=== PATIENT | male | born 1960 | race Caucasian/White ===

== ENCOUNTER 2019-06-15 13:22 | Emergency (ER) | payer BC ==
--- NOTE | 2019-06-15 13:38 | EDM.PDOC ---
ED HPI GENERAL MEDICAL PROBLEM - General Chief Complaint: Lower Extremity Injury/Pain Stated Complaint: FELL OF HORSE Time Seen by Provider: 06/15/19 13:38 Source of Information: Reports: Patient History Limitations: Reports: No Limitations - History of Present Illness INITIAL COMMENTS - FREE TEXT/NARRATIVE: 58-year-old male presents the ED with an acute injury to his right lower extremity. 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 His foot was in the stirrup. A cow came between them running and gave his right foot a heck of a twist injury while he was still in the stirrup . He has some pain in his knee but is unable to weight-bear on the right foot. He was given oxycodone by coworkers. States his main a little loopy in the head. He did not follow up the horse and did not suffer any other injuries. No previous fractures to the right lower extremity Onset: Today Onset Date: 06/15/19 Onset Time: 12:00 Duration: Hour(s): Location: Reports: Lower Extremity, Right Quality: Reports: Ache, Throbbing (Acute injury to the right lower extremity particularly the lateral aspect of the ankle.) Severity: Moderate Improves with: Reports: None (610), Rest Worsens with: Reports: Movement Context: Reports: Trauma. Denies: Activity, Exercise, Lifting, Sick Contact, Other Associated Symptoms: Reports: No Other Symptoms Treatments CAKE WRINGER: Reports: Other (see below) (Percocet tablet 01/08/25 presumably) Right Ankle Pain Score (Numeric/FACES): 7 - Related Data Allergies Allergy/AdvReac Type Severity Reaction Status Date / Time No Known Allergies Allergy Verified 06/15/19 13:34 Home Meds: Home Meds Omeprazole [priLOSEC OTC] 20 mg PO DAILY 05/18/14 [History] oxyCODONE HCl/Acetaminophen [Percocet 5-325 mg Tablet] 1 - 2 each PO Q4H PRN # 20 tablet 06/15/19 [Rx] Past Medical History Gastrointestinal History: Reports: GERD Social & Family History - Tobacco Use Smoking Status *Q: Current Every Day Smoker Years of Tobacco use: 42 Packs/Tins Daily: 1 - Caffeine Use Caffeine Use: Reports: Coffee - Alcohol Use Days Per Week of Alcohol Use: 3 Number of Drinks Per Day: 4 Total Drinks Per Week: 12 - Recreational Drug Use Recreational Drug Use: No - Living Situation & Occupation Living situation: Reports: Occupation: Employed (Self-employed rancher) Review of Systems - Review of Systems Review Of Systems: See Below Constitutional: Reports: No Symptoms Eyes: Reports: No Symptoms Ears: Reports: No Symptoms Nose: Reports: No Symptoms Mouth/Throat: Reports: No Symptoms Respiratory: Reports: No Symptoms Cardiovascular: Reports: No Symptoms GI/Abdominal: Reports: Other Genitourinary: Reports: Other (Mild urinary frequency. Nocturia 1 nightly.) Musculoskeletal: Reports: Leg Pain (Right leg pain right foot pain) Skin: Reports: No Symptoms Neurological: Reports: No Symptoms Psychiatric: Reports: No Symptoms ED EXAM, GENERAL - Physical Exam Exam: See Below Exam Limited By: No Limitations General Appearance: Alert, WD/WN, No Apparent Distress Eye Exam: Bilateral Eye: Normal Inspection Ears: Normal External Exam Ear Exam: Right Ear: Erythema, Bilateral Ear: Auricle Normal, Canal Normal, TM normal Nose: Normal Inspection, Normal Mucosa, No Blood Throat/Mouth: Normal Inspection, Normal Lips, Normal Teeth, Normal Gums, Normal Oropharynx, Normal Voice, No Airway Compromise Head: Atraumatic, Normocephalic Neck: Normal Inspection, Supple, Non-Tender, Full Range of Motion Respiratory/Chest: No Respiratory Distress, Lungs Clear, Normal Breath Sounds, No Accessory Muscle Use, Chest Non-Tender Cardiovascular: Normal Peripheral Pulses, Regular Rate, Rhythm, No Edema, No Gallop, No JVD, No Murmur, No Rub GI/Abdominal: Other (Moderately obese.) Extremities: Other (Examination was right lower extremity shows some pain in the knee but there is no traumatic effusion evident. Jaylin is mostly localized to the distal fibula somewhat the proximal fibula Minimal pain medial aspect of the left ankle. No significant pain on squeezing of the metatarsals and his foot or the fifth metatarsal head. The lateral aspect of ankle is grossly swollen and 6 highly suspicious for a fracture distal fibula. ) Neurological: Alert, Oriented, CN II-XII Intact, Normal Cognition, Normal Gait, Normal Reflexes, No Motor/Sensory Deficits Psychiatric: Normal Affect, Normal Mood Skin Exam: Warm, Dry, Intact, Normal Color, No Rash Lymphatic: No Adenopathy ED TRAUMA EXTREMITY PROCEDURES - Splinting Right Lower Extremity Pre-Procedure NV Status: Normal Post-Procedure NV Status: Normal Splint Material: Fiberglass Splint Design: Stirrup, Posterior (Below-knee right foot and ankle) Applied & Form Fitted By: Provider Provider Post-Splint Application NV Check: NV Status Normal Complications: No Course - Vital Signs Last Recorded V/S: Last Vital Signs Temp 36.7 C 06/15/19 13:33 Pulse 75 06/15/19 13:33 Resp 20 06/15/19 13:33 BP 156/89 H 06/15/19 13:33 Pulse Ox 96 06/15/19 13:33 - Orders/Labs/Meds Orders: Active Orders 24 hr Category Date Time Status Ankle Min 3V Rt [CR] Stat Exams 06/15/19 13:48 Taken Tibia Fibula Rt [CR] Stat Exams 06/15/19 13:49 Taken - Radiology Interpretation Free Text/Narrative:: 58-year-old male presents to the ED for evaluation of acute injury to his right lower extremity. He states he was riding a horse and a cow came by and struck the stirrup were his foot was embedded. This created atrophic twisting force to his right ankle. He has severe pain and inability to walk right lateral ankle. Also some pain in the proximal tib-fib as well. Will therefore have x-rays of the tib-fib and ankle done. - Re-Assessments/Exams Free Text/Narrative Re-Assessment/Exam: 06/15/19 14:21 x-rays of the right tib-fib are within normal limits although there is an abnormality of the distal fibula appreciated. This is better seen on the ankle views with a fracture traveling to the distal aspect of the fibula with good position of the bony fragment. The tibia or talus appreciated. Posterior slab and stirrup Orthoplast splint. He has used crutches in the past. Discharged on Percocet tabs 5/325 one or 2 every 4-6 hours needed for pain relief for the next 2-3 days. I will have informed Dr. Velásquez's office with a view to having cast placement in 3 days time. He is to elevate it as much as possible for the next 3 days to allow swelling to go down to allow cast placement. Of note the patient has Is with him. Departure - Departure Time of Disposition: 14:23 Disposition: Home, Self-Care 01 Condition: Fair Clinical Impression: Fibula fracture Qualifiers: Encounter type: initial encounter Fibula location: distal Fracture type: closed Fracture morphology: other fracture Laterality: right Qualified Code(s): S82.831A - Other fracture of upper and lower end of right fibula, initial encounter for closed fracture - Discharge Information *PRESCRIPTION DRUG MONITORING PROGRAM REVIEWED*: Not Applicable *COPY OF PRESCRIPTION DRUG MONITORING REPORT IN PATIENT [facility]ERA: Not Applicable Prescriptions: oxyCODONE HCl/Acetaminophen [Percocet 5-325 mg Tablet] 1 - 2 each PO Q4H PRN # 20 tablet PRN Reason: pain relief. Instructions: Crutch Use, Adult, [id number], Cast or Splint Care, Adult Referrals: PCP,None [Primary Care Provider] - Forms: ED Department Discharge Additional Instructions: Evaluation the emergency room today in regards to acute injury to the right ankle that occurred while driving cause this morning. Calcaneal in contact with your right foot which was embedded in the stirrup while riding a horse and created a inversion injury to the right ankle. This created soft tissue swelling and likely some ligamentous stretching of the lateral ankle. It is so swollen at this time I cannot examine the ligament structures. X-rays however didn't reveal a fracture through the distal aspect of the fibula which is the outside ankle bone. Position of the fracture is close to anatomic. Therefore surgery is not indicated at this time. No other fractures are identified in your ankle or foot. Treatment in the ED was placement of a posterior Ortho- Glass splint and stirrup splint to protect the area and keep the bone in position. Treatment at home is to elevate the foot is much as possible for the next 3 days. May apply ice pack such as a 2 pound bag peas over the splint for one half hour out of every 4 hours as well. May use Motrin 6 mg every 6 hours needed for pain relief. May use Percocet 5/325 mg one or 2 every 4-6 hours for pain not controlled by Motrin alone. Is called Dr. Velásquez's office-- orthopedic surgeon to arrange for cast application ideally on Friday or next Friday. His phone number is [phone]. - My Orders Last 24 Hours: My Active Orders 06/15/19 13:48 Ankle Min 3V Rt [CR] Stat 06/15/19 13:49 Tibia Fibula Rt [CR] Stat - Assessment/Plan Last 24 Hours: My Active Orders 06/15/19 13:48 Ankle Min 3V Rt [CR] Stat 06/15/19 13:49 Tibia Fibula Rt [CR] Stat
--- NOTE | 2019-06-15 14:45 | CR ---
Right tibia and fibula: AP and lateral views of the right tibia and fibula were obtained. Comparison: No previous study. Distal fibular fracture is again noted as described on ankle exam. Soft tissue swelling is noted. No additional fracture or other bony abnormality is seen. Impression: 1. Distal fibular fracture as described on ankle exam with soft tissue swelling. 2. Right tibia and fibula study is otherwise unremarkable. Diagnostic code #3
--- NOTE | 2019-06-15 14:45 | CR ---
Right ankle: Four views of the right ankle were obtained. Comparison: No prior ankle study. Ankle mortise is symmetric. Minimally displaced fracture involving the distal tip of the fibula is seen. Soft tissue swelling is noted. Ankle mortise is symmetric. Minimal spur at the attachment of the Achilles tendon to the calcaneus is seen. No additional fracture or other bony abnormality is seen. Impression: 1. Minimally displaced fracture within the inferior tip of the fibula. 2. Soft tissue swelling. Diagnostic code #3
== END 2019-06-15 14:45 | disposition home or self-care (01) ==
LOC: JD.ED 13:22
DX: S82.831A Other fracture of upper and lower end of right fibula, initial encounter for closed fracture (principal); F17.210 Nicotine dependence, cigarettes, uncomplicated; X50.1XXA Overexertion from prolonged static or awkward postures, initial encounter; Y93.52 Activity, horseback riding
CPT/HCPCS: 29515; 73590-26-RT; 73590-RT; 73610-26-RT; 73610-RT; 99283; 99283-25

== ENCOUNTER 2021-05-17 19:00 | Emergency (ER) | payer BC ==
--- NOTE | 2021-05-17 19:54 | CR ---
Chest: Portable view of the chest was obtained. Comparison: Prior chest x-ray of 11/12/11. Heart size and mediastinum are within normal limits. Slight parenchymal density is seen within the left base. Lungs otherwise are clear. Old healed right-sided clavicle fracture is noted. Impression: 1. Slight density within the left lung base. Findings most likely represent mild atelectasis. 2. Other findings as noted above. 3. No other acute abnormality is seen. Diagnostic code #3
[2021-05-17] MEDS ORDERED: Acetaminophen/HYDROcodone 325-5 MG Tab PO ONE (20:38)
--- NOTE | 2021-05-17 20:55 | EDM.PDOC ---
ED HPI GENERAL MEDICAL PROBLEM - General Chief Complaint: Chest Pain Stated Complaint: BACK PAIN Time Seen by Provider: 05/17/21 19:43 Source of Information: Reports: Patient, RN Notes Reviewed History Limitations: Reports: No Limitations - History of Present Illness INITIAL COMMENTS - FREE TEXT/NARRATIVE: Patient is a 60-year-old male presenting to the emergency department with complaints of mid back pain that radiates up into his neck and bilateral arms. He also reports reports occasional chest pain, however pain is not present at this time. Patient reports he does have a history of chronic back pain and states that this pain feels similar to his chronic pain. 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 He has had cortisone injections in the past and states that they did help. He took a muscle relaxer, however they are unsure of the name, prior to coming to ER and states that the pain has improved. He reports that he "gets hot "with exertion but denies any significant shortness of breath. He does have history of COPD and states that this has been fairly consistent for him. Reports that he has had some occasional episodes of dizziness upon standing as well. Denies being dizzy at this time. He has a chronic "smokers "cough but denies any worsening of this cough. He has had no fever or chills. Denies any nausea, vomiting, or diarrhea. He is had no recent injuries to his back. Middle Back Pain Score (Numeric/FACES): 8 - Related Data Allergies Allergy/AdvReac Type Severity Reaction Status Date / Time No Known Allergies Allergy Verified 05/17/21 19:14 Home Meds: Home Meds Omeprazole [priLOSEC OTC] 20 mg PO DAILY 05/18/14 [History] oxyCODONE HCl/Acetaminophen [Percocet 5-325 mg Tablet] 1 - 2 each PO Q4H PRN #20 tablet 06/15/19 [Rx] Hydrocodone/Acetaminophen [Hydrocodone-Acetamin 5-325 mg] 1 each PO Q4H PRN #12 tablet 05/17/21 [Rx] Past Medical History HEENT History: Reports: Other (See Below) Other HEENT History: glasses, eyelid surgery Respiratory History: Reports: COPD Gastrointestinal History: Reports: GERD, PUD Musculoskeletal History: Reports: Other (See Below) Other Musculoskeletal History: left knee surgery, right hip replacement, c spine surgery, lumbar surgery Social & Family History - Tobacco Use Tobacco Use Status *Q: Current Every Day Tobacco User Years of Tobacco use: 47 Packs/Tins Daily: 1 - Caffeine Use Caffeine Use: Reports: Coffee - Alcohol Use Days Per Week of Alcohol Use: 7 Number of Drinks Per Day: 5 Total Drinks Per Week: 35 - Recreational Drug Use Recreational Drug Use: No - Living Situation & Occupation Living situation: Reports: Occupation: Employed (Self-employed rancher) ED ROS GENERAL - Review of Systems Review Of Systems: Comprehensive ROS is negative, except as noted in HPI. ED EXAM, GENERAL - Physical Exam Exam: See Below General Appearance: Alert, WD/WN, No Apparent Distress Neck: Normal Inspection, Supple, Non-Tender, Full Range of Motion Respiratory/Chest: No Respiratory Distress, Lungs Clear, Normal Breath Sounds, No Accessory Muscle Use, Chest Non-Tender Cardiovascular: Normal Peripheral Pulses, Regular Rate, Rhythm, No Edema, No Gallop, No JVD, No Murmur, No Rub GI/Abdominal: Normal Bowel Sounds, Soft, Non-Tender, No Organomegaly, No Distention, No Abnormal Bruit, No Mass Back Exam: Normal Inspection, Paraspinal Tenderness (bilatarel to L1-L3), Vertebral Tenderness (L1-L3) Neurological: Alert, Oriented, CN II-XII Intact, Normal Cognition, Normal Gait, Normal Reflexes, No Motor/Sensory Deficits Psychiatric: Normal Affect, Normal Mood Skin Exam: Warm, Dry, Intact, Normal Color, No Rash Course - Vital Signs Last Recorded V/S: Last Vital Signs Temp 100.1 F 05/17/21 19:11 Pulse 76 05/17/21 21:00 Resp 22 H 05/17/21 19:11 BP 135/78 05/17/21 21:00 Pulse Ox 94 L 05/17/21 21:00 - Orders/Labs/Meds Orders: Active Orders 24 hr Category Date Time Status EKG 12 Lead [EK] Stat Ther 05/17/21 19:14 Ordered Labs: Laboratory Tests 05/17/21 05/17/21 05/17/21 Range/Units 19:20 19:20 19:20 WBC 11.15 H (4.23-9.07) K/mm3 RBC 4.97 (4.63-6.08) M/mm3 Hgb 15.6 (13.7-17.5) gm/dl Hct 46.1 (40.1-51.0) % MCV 92.8 H (79.0-92.2) fl MCH 31.4 (25.7-32.2) pg MCHC 33.8 (32.2-35.5) g/dl RDW Std Deviation 44.5 H (35.1-43.9) fL Plt Count 360 H (163-337) K/mm3 MPV 9.4 (9.4-12.3) fl Neut % (Auto) 71.2 H (34.0-67.9) % Lymph % (Auto) 17.9 L (21.8-53.1) % Stone % (Auto) 8.8 (5.3-12.2) % Eos % (Auto) 1.3 (0.8-7.0) Baso % (Auto) 0.5 (0.1-1.2) % Neut # (Auto) 7.93 H (1.78-5.38) K/mm3 Lymph # (Auto) 2.00 (1.32-3.57) K/mm3 Stone # (Auto) 0.98 H (0.30-0.82) K/mm3 Eos # (Auto) 0.15 (0.04-0.54) K/mm3 Baso # (Auto) 0.06 (0.01-0.08) K/mm3 D-Dimer, Quantitative 0.32 (0.19-0.50) mg/L Sodium 144 (136-145) mEq/L Potassium 3.6 (3.5-5.1) mEq/L Chloride 106 (98-107) mEq/L Carbon Dioxide 28 (21-32) mEq/L Anion Gap 13.6 (5-15) BUN 17 (7-18) mg/dL Creatinine 1.1 (0.7-1.3) mg/dL Est Cr Clr Drug Dosing 75.11 mL/min Estimated GFR (MDRD) > 60 (>60) mL/min BUN/Creatinine Ratio 15.5 (14-18) Glucose 129 H (70-99) mg/dL Calcium 8.6 (8.5-10.1) mg/dL Total Bilirubin 0.3 (0.2-1.0) mg/dL AST 23 (15-37) U/L ALT 23 (16-63) U/L Alkaline Phosphatase 81 (46-116) U/L Troponin I < 0.017 (0.00-0.056) ng/mL NT-Pro-B Natriuret Pep (0-125) pg/mL Total Protein 6.4 (6.4-8.2) g/dl Albumin 3.5 (3.4-5.0) g/dl Globulin 2.9 gm/dL Albumin/Globulin Ratio 1.2 (1-2) SARS-CoV-2 RNA ([facility]) (NEGATIVE) 05/17/21 05/17/21 Range/Units 19:20 20:40 WBC (4.23-9.07) K/mm3 RBC (4.63-6.08) M/mm3 Hgb (13.7-17.5) gm/dl Hct (40.1-51.0) % MCV (79.0-92.2) fl MCH (25.7-32.2) pg MCHC (32.2-35.5) g/dl RDW Std Deviation (35.1-43.9) fL Plt Count (163-337) K/mm3 MPV (9.4-12.3) fl Neut % (Auto) (34.0-67.9) % Lymph % (Auto) (21.8-53.1) % Stone % (Auto) (5.3-12.2) % Eos % (Auto) (0.8-7.0) Baso % (Auto) (0.1-1.2) % Neut # (Auto) (1.78-5.38) K/mm3 Lymph # (Auto) (1.32-3.57) K/mm3 Stone # (Auto) (0.30-0.82) K/mm3 Eos # (Auto) (0.04-0.54) K/mm3 Baso # (Auto) (0.01-0.08) K/mm3 D-Dimer, Quantitative (0.19-0.50) mg/L Sodium (136-145) mEq/L Potassium (3.5-5.1) mEq/L Chloride (98-107) mEq/L Carbon Dioxide (21-32) mEq/L Anion Gap (5-15) BUN (7-18) mg/dL Creatinine (0.7-1.3) mg/dL Est Cr Clr Drug Dosing mL/min Estimated GFR (MDRD) (>60) mL/min BUN/Creatinine Ratio (14-18) Glucose (70-99) mg/dL Calcium (8.5-10.1) mg/dL Total Bilirubin (0.2-1.0) mg/dL AST (15-37) U/L ALT (16-63) U/L Alkaline Phosphatase (46-116) U/L Troponin I (0.00-0.056) ng/mL NT-Pro-B Natriuret Pep 43 (0-125) pg/mL Total Protein (6.4-8.2) g/dl Albumin (3.4-5.0) g/dl Globulin gm/dL Albumin/Globulin Ratio (1-2) SARS-CoV-2 RNA ([facility]ENN) Negative (NEGATIVE) Meds: Medications Discontinued Medications Generic Name Dose Route Start Last Admin Trade Name Freq PRN Reason Stop Dose Admin Hydrocodone Bitart/Acetaminophen 1 tab 05/17/21 20:38 05/17/21 20:50 Acetaminophen/Hydrocodone 325-5 Mg Tab PO 05/17/21 20:39 1 tab ONETIME ONE Administration - Re-Assessments/Exams Free Text/Narrative Re-Assessment/Exam: Patient is a 60-year-old male presenting to the emergency department with complaints of mid back pain which radiates to his arms and up his neck. Reports this is a chronic pain for him related to a bulging disc in his spine. He took a muscle relaxer prior to coming to ER and states that this has improved. He has had some episodes of mild chest discomfort, but denies any pain at this time. On triage, his temperature was found to be 100.1. He states that he was experiencing "hot flash". Did recheck his temperature and was found to be 98.3. Blood work was ordered by the triage nurse and found to be overall unremarkable. D-dimer is normal. Troponin is undetectably low. EKG shows normal sinus rhythm at 87 with no ischemic changes. Chest x-ray shows no acute abnormalities. I have ordered Covid testing. Patient does not want to wait for the results of this test. I did discuss with him that if it would come back positive, he would be a candidate for monoclonal antibodies. I will call him with the test results once they are available. I discussed with him and his that he should follow-up with his primary care provider at the next availab le visit to discuss possible stress test. Also discussed return precautions. I will give him a hydrocodone with Tylenol for pain and send prescription to [facility]. Discharge instructions as documented. Departure - Departure Time of Disposition: 20:53 Disposition: Home, Self-Care 01 Condition: Good Clinical Impression: Atypical chest pain Chronic back pain Qualifiers: Back pain location: thoracic back pain Back pain laterality: midline Qualified Code(s): M54.6 - Pain in thoracic spine - Discharge Information *PRESCRIPTION DRUG MONITORING PROGRAM REVIEWED*: No *COPY OF PRESCRIPTION DRUG MONITORING REPORT IN PATIENT KERA: No Prescriptions: Hydrocodone/Acetaminophen [Hydrocodone-Acetamin 5-325 mg] 1 each PO Q4H PRN #12 tablet PRN Reason: Pain Instructions: Chronic Back Pain Referrals: Sole Hinojosa NP [Primary Care Provider] - Forms: ED Department Discharge Additional Instructions: You were seen in the emergency department today for upper back pain as well as intermittent chest pain. Work-up included blood work, chest x-ray, EKG of your heart, and Covid test. Results of your work-up were found to be overall normal. Your cardiac enzymes are undetectably low indicating that you are not having heart attack. You do not have a blood clot in your lungs. Your EKG showed no acute abnormalities. Chest x-ray was normal. Covid test results are currently pending. We will notify you of these when they are available. Recommend following up with your primary care provider at her next available visit to discuss an outpatient stress test of your heart. You have been prescribed hydrocodone with Tylenol for pain. Take this only as prescribed. Do not work or drive for 12 hours after taking this as it can be sedating. If you should experience any new or worsening symptoms, please do not hesitate to return to the emergency department for reevaluation. Sepsis Event Note (ED) - Evaluation Sepsis Screening Result: Possible Sepsis Risk - Focused Exam Vital Signs: Vital Signs Temp Pulse Resp BP Pulse Ox 05/17/21 21:00 76 135/78 94 L 05/17/21 20:30 78 147/99 H 94 L 05/17/21 20:00 83 119/67 94 L 05/17/21 19:30 87 154/95 H 93 L 05/17/21 19:11 100.1 F 89 22 H 137/88 93 L - My Orders Last 24 Hours: My Active Orders 05/17/21 19:14 EKG 12 Lead [EK] Stat - Assessment/Plan Last 24 Hours: My Active Orders 05/17/21 19:14 EKG 12 Lead [EK] Stat
== END 2021-05-17 21:05 | disposition home or self-care (01) ==
LOC: JD.ED 19:00
DX: R07.89 Other chest pain (principal); M54.6 Pain in thoracic spine; J44.9 Chronic obstructive pulmonary disease, unspecified; K21.9 Gastro-esophageal reflux disease without esophagitis; Z79.899 Other long term (current) drug therapy; Z72.0 Tobacco use; Z20.822 Contact with and (suspected) exposure to COVID-19
CPT/HCPCS: 36415; 71045; 80053; 83880; 84484; 85025; 85379; 87635; 99285; A9270; 99284; U0002

== ENCOUNTER 2022-08-15 11:31 | Day surgery (SDC) | payer OTHER ==
[~2022-08-15 11:31] MED LIST: Lactated Ringers 1,000 ML IV SCH; Lidocaine 1%/Sod Bicarbonate in NS 8.4% 1 ML Syringe IDERM PRN; Sodium Chloride 0.9% 10 ML Syringe FLUSH PRN; Sodium Chloride 0.9% 10 ML Syringe FLUSH SCH
[2022-08-15] MEDS ORDERED: Albuterol 0.083% 2.5 MG/3 ML Neb Soln NEB SCH (12:04)
[2022-08-15] MEDS ORDERED: Lidocaine 1% 4 ML ONE (13:21)
[2022-08-15] MEDS ORDERED: Propofol 200 MG/20 ML SDV ONE (13:21)
[2022-08-15] MEDS ORDERED: fentaNYL 100 MCG/2 ML SDV ONE (13:25)
== END 2022-08-15 14:30 | disposition home or self-care (01) ==
LOC: JD.SDS 11:31
PROVIDERS: ATTEND Surgery
DX: Z12.11 Encounter for screening for malignant neoplasm of colon (principal); J44.9 Chronic obstructive pulmonary disease, unspecified; F32.A Depression, unspecified; K21.9 Gastro-esophageal reflux disease without esophagitis; G47.33 Obstructive sleep apnea (adult) (pediatric); E66.9 Obesity, unspecified; F17.210 Nicotine dependence, cigarettes, uncomplicated; Z79.899 Other long term (current) drug therapy; Z86.010 Personal history of colon polyps; Z91.048 Other nonmedicinal substance allergy status; Z98.890 Other specified postprocedural states; Z68.37 Body mass index [BMI] 37.0-37.9, adult; Z90.49 Acquired absence of other specified parts of digestive tract; Z96.642 Presence of left artificial hip joint
CPT/HCPCS: 45378; J2704; J3010; J7120

== ENCOUNTER 2025-06-30 08:21 | Emergency (ER) | payer MEDICARE ==
[2025-06-30 10:22] LABS: BASOPHILS ABSOLUTE AUTO 0.1 K/mm3 (0.0-0.2); BASOPHILS PERCENT AUTO 0.7 % (0.0-1.0); EOSINOPHILS ABSOLUTE AUTO 0.0 K/mm3 (0.0-0.4); EOSINOPHILS PERCENT AUTO 0.2 % (0.0-6.0); IMMATURE GRAN ABSOLUTE AUTO 0.06 K/mm3 (0.00-0.05); IMMATURE GRAN PERCENT AUTO 0.5 % (0.0-0.4); LYMPHOCYTES ABSOLUTE AUTO 1.4 K/mm3 (1.0-4.8); LYMPHOCYTES PERCENT AUTO 11.7 % (24.0-44.0); MEAN PLATELET VOLUME 9.3 fl (9.4-12.4); MONOCYTES ABSOLUTE AUTO 0.9 K/mm3 (0.0-0.8); MONOCYTES PERCENT AUTO 7.1 % (0.0-8.0); NEUTROPHILS ABSOLUTE AUTO 9.8 K/mm3 (1.8-7.7); NEUTROPHILS PERCENT AUTO 79.8 % (41.0-71.0); NRBC ABSOLUTE 0.00 (0.00-0.02); NRBC PERCENT 0.0 % (0.0-0.2); PLATELET COUNT,PLT 381 K/mm3 (150-400); RED BLOOD CELL COUNT 5.67 M/mm3 (4.52-5.90); WHITE BLOOD CELL COUNT,WBC 12.25 K/mm3 (3.9-11.3)
[2025-06-30 10:42] LABS: INR 1.07
[2025-06-30 10:46] LABS: A/G RATIO 1.3 (1-2); ALANINE AMINOTRANSFERASE,ALT 17 U/L (16-63); ASPARTATE AMNIOTRANSFERASE,AST 21 U/L (15-37); BILIRUBIN TOTAL 0.4 mg/dL (0.2-1.0); BLOOD UREA NITROGEN,BUN 9 mg/dL (7-18); CARBON DIOXIDE,CO2 29 mEq/L (21-32); CHLORIDE,CL 106 mEq/L (98-107); CREATINE KINASE,CK 85 U/L (39-308); CREATININE 0.9 mg/dL (0.7-1.3); ESTIMATED GFR 95 mL/min (>60); GLUCOSE RANDOM 101 mg/dL (70-99); POTASSIUM,K 4.7 mEq/L (3.5-5.1); PROTEIN TOTAL,TP 6.7 g/dl (6.4-8.2); SODIUM,NA 145 mEq/L (136-145); TROPONIN I HIGH SENSITIVITY 13 pg/mL (<=76)
[2025-06-30] MEDS ORDERED: Acetaminophen/HYDROcodone 325-5 MG Tab PO STA (10:51)
[2025-06-30 10:56] LABS: ETHANOL BLOOD MEDICAL 0.00 gm% (0.00)
[2025-06-30] MEDS: Acetaminophen/HYDROcodone 325-5 MG Tab PO STA (11:02)
== END 2025-06-30 11:30 | disposition home or self-care (01) ==
LOC: JD.ED 08:21
DX: I10 Essential (primary) hypertension (principal); R00.0 Tachycardia, unspecified; F43.9 Reaction to severe stress, unspecified; R53.83 Other fatigue; E86.0 Dehydration; J44.9 Chronic obstructive pulmonary disease, unspecified; K21.9 Gastro-esophageal reflux disease without esophagitis; F17.200 Nicotine dependence, unspecified, uncomplicated; Z90.49 Acquired absence of other specified parts of digestive tract; Z79.899 Other long term (current) drug therapy; Z98.890 Other specified postprocedural states
CPT/HCPCS: 36415; 71045; 80053; 80307; 82550; 83690; 83735; 84484; 85025; 85610; 93005; 96360; 99284; A9270; J7030; 93010

== ENCOUNTER 2025-07-07 16:52 | Emergency (ER) | payer MEDICARE ==
[2025-07-07] MEDS ORDERED: Sodium Chloride 0.9% 10 ML Syringe FLUSH PRN (17:44)
[2025-07-07] MEDS: Ondansetron 4 MG/2 ML SDV IVPUSH ONE (18:08)
[2025-07-07 18:14] LABS: BASOPHILS ABSOLUTE AUTO 0.1 K/mm3 (0.0-0.2); BASOPHILS PERCENT AUTO 0.7 % (0.0-1.0); EOSINOPHILS ABSOLUTE AUTO 0.1 K/mm3 (0.0-0.4); EOSINOPHILS PERCENT AUTO 0.4 % (0.0-6.0); IMMATURE GRAN ABSOLUTE AUTO 0.06 K/mm3 (0.00-0.05); IMMATURE GRAN PERCENT AUTO 0.4 % (0.0-0.4); LYMPHOCYTES ABSOLUTE AUTO 1.2 K/mm3 (1.0-4.8); LYMPHOCYTES PERCENT AUTO 8.7 % (24.0-44.0); MEAN PLATELET VOLUME 9.6 fl (9.4-12.4); MONOCYTES ABSOLUTE AUTO 1.3 K/mm3 (0.0-0.8); MONOCYTES PERCENT AUTO 9.7 % (0.0-8.0); NEUTROPHILS ABSOLUTE AUTO 10.8 K/mm3 (1.8-7.7); NEUTROPHILS PERCENT AUTO 80.1 % (41.0-71.0); NRBC ABSOLUTE 0.00 (0.00-0.02); NRBC PERCENT 0.0 % (0.0-0.2); PLATELET COUNT,PLT 354 K/mm3 (150-400); RED BLOOD CELL COUNT 4.85 M/mm3 (4.52-5.90); WHITE BLOOD CELL COUNT,WBC 13.45 K/mm3 (3.9-11.3)
[2025-07-07 18:36] LABS: A/G RATIO 1.0 (1-2); ALANINE AMINOTRANSFERASE,ALT 13.0 U/L (16-63); ASPARTATE AMNIOTRANSFERASE,AST 23.0 U/L (15-37); BILIRUBIN TOTAL 0.4 mg/dL (0.2-1.0); BLOOD UREA NITROGEN,BUN 13.0 mg/dL (7-18); CARBON DIOXIDE,CO2 30.0 mEq/L (21-32); CHLORIDE,CL 102.0 mEq/L (98-107); CREATININE 1.0 mg/dL (0.7-1.3); EST CRCL DRUG DOSING (CG) 78.44 mL/min; ESTIMATED GFR 84.0 mL/min (>60); GLUCOSE RANDOM 104.0 mg/dL (70-99); POTASSIUM,K 4.4 mEq/L (3.5-5.1); PROTEIN TOTAL,TP 6.3 g/dl (6.4-8.2); SODIUM,NA 139.0 mEq/L (136-145)
[2025-07-07] MEDS: Sodium Chloride 0.9% 10 ML Syringe FLUSH ONE (18:56)
[2025-07-07] MEDS: Iopamidol 755 Mg/ML 100 ML Bottle IVPUSH ONE (18:56)
== END 2025-07-07 21:14 | disposition home or self-care (01) ==
LOC: JD.ED 16:52
DX: K59.03 Drug induced constipation (principal); J44.9 Chronic obstructive pulmonary disease, unspecified; F17.200 Nicotine dependence, unspecified, uncomplicated; Z90.49 Acquired absence of other specified parts of digestive tract; Z79.899 Other long term (current) drug therapy
CPT/HCPCS: 36415; 74019; 74177; 80053; 85025; 86140; 96374; 96375; 99284; J2405; J7030; Q9967; 99283; J1171